=== PATIENT | female | born 1970 | race Caucasian/White ===

== ENCOUNTER → 2023-12-23 15:58 | Outpatient (REF) | payer OTHER, SELFPAY | LOC: RAD 15:58 | PROVIDERS: ATTENDING PHYSICIAN Internal Medicine | DX: E04.2 Nontoxic multinodular goiter (principal) | CPT/HCPCS: 76536 ==

== ENCOUNTER → 2024-01-11 09:22 | Outpatient (REF) | payer OTHER, SELFPAY ==
[2024-01-11 09:58] VITALS: BP 144/74; BP_SYST 88
== END ==
LOC: RADI 09:22
PROVIDERS: ATTENDING PHYSICIAN Internal Medicine
DX: E04.1 Nontoxic single thyroid nodule (principal)
CPT/HCPCS: 88173; 10005

== ENCOUNTER → 2024-02-15 15:31 | Outpatient (REF) | payer OTHER, SELFPAY | LOC: PAVMRI 15:31 | PROVIDERS: ATTENDING PHYSICIAN Pain Medicine Interventional Pain Medicine; FAMILY PHYSICIAN Internal Medicine | DX: M54.16 Radiculopathy, lumbar region (principal) | CPT/HCPCS: 72148 ==

== ENCOUNTER 2024-03-30 06:36 | Outpatient (RCR) | payer OTHER, SELFPAY | END 2024-03-30 23:59 | disposition home or self-care (01) | LOC: RPT 06:36 | PROVIDERS: ATTENDING PHYSICIAN Pain Medicine Interventional Pain Medicine; FAMILY PHYSICIAN Internal Medicine | DX: M54.16 Radiculopathy, lumbar region (principal); Z73.6 Limitation of activities due to disability | CPT/HCPCS: 97010; 97110; 97112; 97140; 97162 ==

== ENCOUNTER 2024-04-04 09:04 | Outpatient (RCR) | payer OTHER, SELFPAY | END 2024-04-04 12:40 | disposition home or self-care (01) | LOC: RPT 09:04 | PROVIDERS: ATTENDING PHYSICIAN Pain Medicine Interventional Pain Medicine; FAMILY PHYSICIAN Internal Medicine | DX: M54.16 Radiculopathy, lumbar region (principal); Z73.6 Limitation of activities due to disability | CPT/HCPCS: 97010; 97110; 97112; 97140 ==

== ENCOUNTER → 2024-05-31 14:40 | Outpatient (REF) | payer OTHER, SELFPAY | LOC: PAVMRI 14:40 | PROVIDERS: ATTENDING PHYSICIAN Pain Medicine Interventional Pain Medicine; FAMILY PHYSICIAN Internal Medicine | DX: M54.14 Radiculopathy, thoracic region (principal); M54.12 Radiculopathy, cervical region | CPT/HCPCS: 72141; 72146 ==

== ENCOUNTER → 2024-06-07 08:46 | Outpatient (REF) | payer OTHER, SELFPAY | LOC: HWRAD 08:46 | PROVIDERS: ATTENDING PHYSICIAN Advanced Practice Midwife; FAMILY PHYSICIAN Internal Medicine | DX: R10.2 Pelvic and perineal pain (principal) | CPT/HCPCS: 76830; 76856 ==

== ENCOUNTER → 2024-07-18 19:43 | Outpatient (REF) | payer OTHER, SELFPAY | LOC: MRI 19:43 | PROVIDERS: ATTENDING PHYSICIAN Advanced Practice Midwife; FAMILY PHYSICIAN Internal Medicine | DX: N80.03 Adenomyosis of the uterus (principal) | CPT/HCPCS: 72197; A9575 ==

== ENCOUNTER → 2024-08-23 08:08 | Outpatient (REF) | payer OTHER, SELFPAY | LOC: WDC 08:08 | PROVIDERS: ATTENDING PHYSICIAN Nurse Practitioner Family; FAMILY PHYSICIAN Internal Medicine | DX: Z12.31 Encounter for screening mammogram for malignant neoplasm of breast (principal) | CPT/HCPCS: 77063; 77067 ==

== ENCOUNTER → 2024-08-29 07:14 | Outpatient (REF) | payer OTHER, SELFPAY | LOC: MRI 3T 07:14 | PROVIDERS: ATTENDING PHYSICIAN Orthopaedic Surgery; FAMILY PHYSICIAN Internal Medicine | DX: M25.552 Pain in left hip (principal) | CPT/HCPCS: 73721 ==

== ENCOUNTER → 2025-02-15 17:16 | Outpatient (REF) | payer OTHER, SELFPAY | LOC: RAD 17:16 | PROVIDERS: ATTENDING PHYSICIAN Internal Medicine; FAMILY PHYSICIAN Internal Medicine | DX: E04.2 Nontoxic multinodular goiter (principal) | CPT/HCPCS: 76536 ==

== ENCOUNTER 2025-02-27 18:02 | Outpatient (RCR) | payer OTHER, SELFPAY | END 2025-02-27 23:59 | disposition home or self-care (01) | LOC: RPT 18:02 | PROVIDERS: ATTENDING PHYSICIAN Internal Medicine | DX: M54.2 Cervicalgia (principal); Z73.6 Limitation of activities due to disability; M54.9 Dorsalgia, unspecified; M25.552 Pain in left hip; M25.551 Pain in right hip; G89.29 Other chronic pain | CPT/HCPCS: 97010; 97110; 97112; 97140; 97162 ==

== ENCOUNTER 2025-03-18 19:00 | Outpatient (RCR) | payer OTHER, SELFPAY | END 2025-03-18 23:59 | disposition home or self-care (01) | LOC: RPT 19:00 | PROVIDERS: ATTENDING PHYSICIAN Internal Medicine | DX: M54.2 Cervicalgia (principal); G89.29 Other chronic pain; M54.9 Dorsalgia, unspecified; M25.552 Pain in left hip; M25.551 Pain in right hip; Z73.6 Limitation of activities due to disability | CPT/HCPCS: 97110; 97112; 97140 ==

== ENCOUNTER 2025-04-17 18:58 | Outpatient (RCR) | payer OTHER, SELFPAY | END 2025-04-17 23:59 | disposition home or self-care (01) | LOC: RPT 18:58 | PROVIDERS: ATTENDING PHYSICIAN Internal Medicine | DX: M54.2 Cervicalgia (principal); G89.29 Other chronic pain; M54.9 Dorsalgia, unspecified; M25.552 Pain in left hip; M25.551 Pain in right hip; Z73.6 Limitation of activities due to disability | CPT/HCPCS: 97110; 97112 ==

== ENCOUNTER 2025-04-23 11:39 | Outpatient (RCR) | payer OTHER, SELFPAY | END 2025-04-23 23:59 | disposition home or self-care (01) | LOC: RPT 11:39 | PROVIDERS: ATTENDING PHYSICIAN Advanced Practice Midwife; FAMILY PHYSICIAN Internal Medicine | DX: N81.89 Other female genital prolapse (principal); N39.3 Stress incontinence (female) (male); N39.41 Urge incontinence; M62.81 Muscle weakness (generalized); Z73.6 Limitation of activities due to disability | CPT/HCPCS: 97140; 97163; 97530 ==

== ENCOUNTER → 2025-05-17 07:17 | Outpatient (REF) | payer OTHER, SELFPAY | LOC: HWRAD 07:17 | PROVIDERS: ATTENDING PHYSICIAN Internal Medicine Cardiovascular Disease; FAMILY PHYSICIAN Internal Medicine | DX: Q24.8 Other specified congenital malformations of heart (principal) | CPT/HCPCS: 71250 ==

== ENCOUNTER → 2025-05-28 07:23 | Outpatient (REF) | payer OTHER, SELFPAY | LOC: RCS 07:23 | PROVIDERS: ATTENDING PHYSICIAN Internal Medicine Cardiovascular Disease; FAMILY PHYSICIAN Internal Medicine | DX: Q24.8 Other specified congenital malformations of heart (principal) | CPT/HCPCS: 93306 ==

== ENCOUNTER 2025-05-28 11:57 | Outpatient (RCR) | payer OTHER, SELFPAY | END 2025-05-28 23:59 | disposition home or self-care (01) | LOC: RPT 11:57 | PROVIDERS: ATTENDING PHYSICIAN Advanced Practice Midwife; FAMILY PHYSICIAN Internal Medicine | DX: N81.89 Other female genital prolapse (principal); N39.3 Stress incontinence (female) (male); N39.41 Urge incontinence; M62.81 Muscle weakness (generalized); Z73.6 Limitation of activities due to disability | CPT/HCPCS: 97110; 97112; 97140; 97530 ==

== ENCOUNTER → 2025-06-07 06:41 | Outpatient (REF) | payer OTHER, SELFPAY | LOC: RAD 06:41 | PROVIDERS: ATTENDING PHYSICIAN Internal Medicine | DX: K76.89 Other specified diseases of liver (principal) | CPT/HCPCS: 76700 ==

== ENCOUNTER → 2025-06-13 09:47 | Outpatient (REF) | payer OTHER, SELFPAY | LOC: RCS 09:47 | PROVIDERS: ATTENDING PHYSICIAN Internal Medicine Cardiovascular Disease; FAMILY PHYSICIAN Internal Medicine | DX: R06.09 Other forms of dyspnea (principal); I25.10 Atherosclerotic heart disease of native coronary artery without angina pectoris | CPT/HCPCS: 93017; 93350 ==

== ENCOUNTER 2025-06-20 10:57 | Outpatient (RCR) | payer OTHER, SELFPAY | END 2025-06-20 23:59 | disposition home or self-care (01) | LOC: RPT 10:57 | PROVIDERS: ATTENDING PHYSICIAN Advanced Practice Midwife; FAMILY PHYSICIAN Internal Medicine | DX: N81.89 Other female genital prolapse (principal); N39.3 Stress incontinence (female) (male); N39.41 Urge incontinence; M62.81 Muscle weakness (generalized); Z73.6 Limitation of activities due to disability | CPT/HCPCS: 97110; 97140; 97530 ==

== ENCOUNTER 2025-07-09 13:03 | Outpatient (RCR) | payer OTHER, SELFPAY | END 2025-07-11 14:29 | disposition home or self-care (01) | LOC: RPT 13:03 | PROVIDERS: ATTENDING PHYSICIAN Advanced Practice Midwife; FAMILY PHYSICIAN Internal Medicine | DX: N81.89 Other female genital prolapse (principal); N39.3 Stress incontinence (female) (male); N39.41 Urge incontinence; Z73.6 Limitation of activities due to disability; M62.81 Muscle weakness (generalized) | CPT/HCPCS: 97014; 97110; 97112; 97530 ==

== ENCOUNTER 2025-07-17 04:59 | Inpatient (IN) | payer OTHER, SELFPAY ==
[2025-06-21 09:36] VITALS: BMI 27.8
[2025-06-21 10:09] LABS: Hematocrit 37.7 % (37.0-47.0); Hemoglobin 12.3 g/dL (12.0-16.0); Mean Corp Hgb Conc. 32.6 g/dL (33.0-37.0); Mean Corpuscular Volume 87.7 fL (81.0-99.0); Nucleated Red Blood Cells % 0 %; Platelet Count 253 10^3/uL (130-400); Red Cell Dist. Width 13.9 % (11.5-14.5)
[2025-06-21 10:09] LABS: Urine Character Clear (Clear)
[2025-06-21 10:17] LABS: INR 0.92; PT 12.6 Sec (11.4-14.6)
[2025-06-21 10:28] LABS: Urine Squamous Cell >30 /LPF (Few)
[2025-06-21 10:29] LABS: Urine Red Blood Cell 0-2 /HPF (0-2)
[2025-06-21 10:39] LABS: ALT (SGPT) 10 U/L (0-35); AST (SGOT) 26 U/L (14-36); Albumin 4.8 g/dl (3.5-5.0); Alkaline Phosphatase 61 U/L (38-126); Blood Urea Nitrogen 14 mg/dl (7-17); Calcium 9.4 mg/dl (8.4-10.2); Carbon Dioxide 28 mmol/L (22-30); Chloride 103 mmol/L (98-107); Estimated Creatinine Clearance 88 ml/min; Glucose 73 mg/dl (70-99); Potassium 4.1 mmol/L (3.5-5.1); Sodium 137 mmol/L (135-145); Total Protein 7.2 g/dl (6.3-8.2); eGFR > 60.00
--- NOTE | 2025-06-21 10:39 | CM ---
Chart reviewed. Met with the patient in PAT. Reviewed preoperative and postoperative instructions and restrictions, along with showering guidelines. Gave patient 2 soaps. Patient is agreeable to a home visit by CT Transitional RN. Patient is
independent of ADLS, lives alone in a 2 story condo, 2 full flight of stairs to enter, 0 DME. Patient with a supportive mother, sister and friends. Patient's mother will stay with the patient for a couple of days after discharge. Plan is for
the patient to return home with CT Transitional RN.
[2025-06-21 11:44] LABS: Glycohemoglobin (HgbA1c) 5.3 % (4.0-5.6)
[2025-07-17] VITALS (9 sets, daily range): BP systolic 111–142; BP diastolic 60–84; BMI 28.3
--- NOTE | 2025-07-17 06:25 | W.CVOR.SURPR ---
CVOR Surgeon Immed Pre Op
-
I have examined this patient prior to performance of the scheduled procedure.
The patient's condition is unchanged from the time of the dictated/written History and
Physical and the patient is able to undergo the scheduled procedure.
RATS R sided pericardial cyst resection
--- NOTE | 2025-07-17 06:30 | PTCARENOTE ---
admitted pt into CVICU room 2260. pt confirmed 2 showers at home. pt clipped and prepped for CVOR. med rec completed. all questions answered. kapok and cotton machine operator to CVOR.
[2025-07-17] MEDS: ANCEF 10 IV ×2 (08:17→10:33)
[2025-07-17 08:22] LABS: Urine Character Slightly Cloudy (Clear)
[2025-07-17 08:48] LABS: Urine Urothelial Cell 0-2 /LPF (FEW)
--- NOTE | 2025-07-17 09:42 | W.PN.CT.SURG ---
CT Surgery Operative Note
-
THORACIC SURGERY OPERATIVE REPORT
Preoperative Diagnosis: Pericardial cyst, right side
Postoperative Diagnosis: Same
Procedure(s) Performed:
1. Robotic assisted thoracic surgery [R ATS]
2. Pericardial cyst resection with preservation of the right phrenic nerve
3. Intercostal nerve block interspaces 4, 5, 6, 7
4. Intercostal cryo nerve ablation, interspaces 4, 5, 6, 7 with 2 minutes of freezing time each
5. Lysis of adhesion, pneumolysis
Date of Surgery: 07/17/25
Comorbidities:
1. Pericardial cyst
2. History of EtOH abuse, sober since 2003
3. OCD
4. Menorrhagia
5. Depression
6. Melanoma of the left upper extremity, status post resection
7. Hepatic cysts
Attending Surgeon: Fritz Yanez MD, MS
Assistants: Latanya Landry PA-C (present and necessary to family assistant, exchanging robotic instruments, retraction, suction, exposure, suture management, and wound closure under my direction), Donna Medrano MD (did portions of the cyst resection and
pneumolysis
Anesthesiology: Uzair Birch MD and Paulino Xie CRNA
Scrub and Circulating RNs: Toney Castano RN, Ann Stark RN
Anesthesia: Dual Lumen GETA
EBL: 10 cc
Products: None
Indication(s) for Procedures: This is a 54-year-old female who was found to have a pericardial cyst in the right side. She has had multiple imaging studies to demonstrate stability of the pericardial cyst. Lately she has been developing shortness
of breath with exertion and some fatigue. Although I told her this is likely not related to her cyst, she felt that she would want this pericardial cyst taken out due to her anxiety.
Findings: This is a 54-year-old female whose had a stable right-sided pericardial cyst. Intraoperatively there is no obvious lesions or concerning for metachronous disease. There was adhesions from her right upper middle lobes to the pericardial
cyst. Her phrenic nerve was visualized running along the pericardium and also in the sac at the lower border. She is unable to be peeled off and I felt it was very incorporated into the pericardial cyst. The pericardial cyst was then
from the [place] pericardium with part of her thymic fat resected as well. At this point I entered into the pericardial cyst and isolated a 2 to 3 mm patch of cyst tissue along the phrenic nerve in order to avoid injuring it. I then peeled off the
posterior aspect of the sac from the [place] pericardium. This was done with the vessel sealer. The sac was then placed into a small anchor bag and extracted from the chest cavity. Intercostal nerve block and cryoablation of the nerves were then
performed as listed above. And adhesions between the right upper middle lobes were also divided with vessel sealer. As inclusion the case, there was no significant bleeding from the resected cavity and all 3 lobes expanded well.
Specimen(s):
Pericardial cyst
Description of Procedure: The patient was taken to the operating room. Induction via general anesthesia with endotracheal intubation was performed and peripheral venous access and arterial monitoring were inserted. Their identity and procedure to be
performed were verified and they were positioned with the right side bumped up on the operating table. The patient was then prepped and draped in a sterile fashion. A preoperative time-out was performed with all members of the team present. A
Veress needle was used to insufflate the chest after isolating the lung. An 8 mm port was placed in the midaxillary line at approximately the 3rd intercostal space and confirmed to be intrathoracic without significant pulmonary injury. The chest was
surveyed for any evidence of metastatic disease. Patient tolerate insufflation without complication. 2 additional 8 mm trocars were placed on with one going through a 12 mm sales operations assistant port. The pericardial sac/close was identified and any adhesions
to the lung was taken down using the vessel sealer. I then worked my way around the cyst and isolated it. The phrenic nerve was closely encased and incorporated to the pericardial cyst and so the cyst was marsupialized and a small rim of sac
tissue was left attached to the phrenic nerve. Additional pneumo lysis was then performed. A small anchor bag was then placed to the chest cavity and the pericardial cyst was placed inside the bag and extracted from the chest cavity. The
intercostal nerve blocks then performed with injection of local analgesia followed by cryo nerve ablation at the listed interspaces above. A single chest tube was placed through one of the ports towards the apex. After confirming hemostasis, the
lung was fully inflated and all ports were removed. Incisions were closed in 3 layers including the fascia, dermal, and epidermis. Additional local anesthesia was injected into all incision sites. The skin wound was cleansed and sealed with
Dermabond glue.
All instrument, sponge, and needle counts were confirmed to be correct x 2 at the end of the operation. The patient was transferred to the cardiac intensive care unit extubated in critical but stable condition.
I, Dr. Fritz Yanez, was present, scrubbed for, and performed all critical elements of this procedure.
Fritz Yanez MD, MS
Cardiothoracic Surgeon
[facility]
This operative dictation was created using the PERORA dictation system. Please excuse any grammatical, typographical, or 'sound alike' errors
--- NOTE | 2025-07-17 10:15 | PTCARENOTE ---
received patient from cvor still drowsy but extubated and with simple face mask. pulse ox 99% NSR. HR 80s. No central lines. 1 CT R lateral to water seal. draining minimal red. Lungs diminished. IS to 750-1000. no gtts infusing. pulses palpable no
edema. Punctures from surgery to R sidex3. surgical glue/BRANDIE. will cotninue to monitor. mom updated at bedside.
[2025-07-17 10:23] LABS: Hematocrit 33.7 % (37.0-47.0); Hemoglobin 11.2 g/dL (12.0-16.0); Mean Corp Hgb Conc. 33.2 g/dL (33.0-37.0); Mean Corpuscular Volume 87.5 fL (81.0-99.0); Platelet Count 241 10^3/uL (130-400); Red Cell Dist. Width 13.4 % (11.5-14.5)
[2025-07-17 10:34] LABS: INR 0.95; PT 13.2 Sec (11.4-14.6)
[2025-07-17] MEDS: SENOKOT PO (10:34)
[2025-07-17] MEDS: NEURONTIN PO (10:34)
[2025-07-17] MEDS: MIRALAX PO (10:34)
[2025-07-17 10:38] LABS: Blood Urea Nitrogen 11 mg/dl (7-17); Calcium 8.3 mg/dl (8.4-10.2); Carbon Dioxide 28 mmol/L (22-30); Chloride 106 mmol/L (98-107); Estimated Creatinine Clearance 114 ml/min; Glucose 173 mg/dl (70-99); Potassium 3.8 mmol/L (3.5-5.1); Sodium 139 mmol/L (135-145); eGFR > 60.00
[2025-07-17] MEDS: TORADOL 15 MG IV ×2 (11:15→18:22)
--- NOTE | 2025-07-17 12:43 | W.PN.CARDCBS ---
Addendum entered and electronically signed by Raheem Jenninsg MD 07/17/25 14:20:
I saw and examined the patient.
The [employer]VE[employer] or PA's note was reviewed and I agree with the note.
Comment: General: Well developed, well nourished in NAD.
Neck: Supple, no JVD, HJR, carotids +2 B/L, no bruits bilaterally.
Heart: Non displaced PMI, RRR, no murmurs, No S3, S4, no rubs.
Lungs: Scattered rhonchi
Extremities: No clubbing, cyanosis or edema bilaterally.
Neuro: Grossly nonfocal, awake, alert and oriented x3.
Le the seen immediately postop status post pericardial cyst resection. Remains in sinus rhythm. Stable cardiology status. Discussed with patient and mother at bedside. Discussed with CT surgery PA.
Original Note:
Today's Communication / Plan
-
continue post op care
in SR
Impression / Plan
-
Primary Liability Analyst: Dr. Saeed
Assessment:
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
History of ETOH abuse
OCD
Depression
Hepatic cysts
Echo 05/28/2025: EF 62%, no regional wall motion abnormalities, no significant valvular disease
Plan:
-s/p RATS with pericardial cyst resection 07/17/25
-wean supp O2 as able
-BP/HR stable
-in SR with incomplete RBBB on review of post op EKG.
-hgb 11.2
-continue post op care
-d/w nursing
Progress Note - Liability Analyst
Subjective
Date of Service: July 17, 2025
no complaints
Objective
Labs:
07/17/25 10:13
07/17/25 10:13
Labs
Hgb 11.2 g/dL (12.0-16.0) L 07/17/25 10:13
Hct 33.7 % (37.0-47.0) L 07/17/25 10:13
Plt Count 241 10^3/uL (130-400) 07/17/25 10:13
PT 13.2 Sec (11.4-14.6) 07/17/25 10:13
INR 0.95 07/17/25 10:13
Sodium 139 mmol/L (135-145) 07/17/25 10:13
Potassium 3.8 mmol/L (3.5-5.1) 07/17/25 10:13
BUN 11 mg/dl (7-17) 07/17/25 10:13
Creatinine 0.6 mg/dL (0.6-1.0) 07/17/25 10:13
Glucose 173 mg/dl (70-99) H 07/17/25 10:13
Vital Signs and I&O:
Vital Signs
Temp Pulse Resp BP Pulse Ox
98 F 78 13 142/84 98
07/17/25 10:33 07/17/25 12:15 07/17/25 12:15 07/17/25 05:07 07/17/25 12:15
Vital Signs
Temp Pulse Resp BP Pulse Ox
98 F 78 13 142/84 98
07/17/25 10:33 07/17/25 12:15 07/17/25 12:15 07/17/25 05:07 07/17/25 12:15
Intake & Output
07/15/25 07/16/25 07/17/25 07/18/25
07:59 07:59 07:59 07:59
Output Total
Balance -
Physical Exam
Physical Exam
GEN: No distress, awake but groggy, oriented x3. on supp O2
HEENT: supple, anicteric, mmm, eomi
LUNGS: CTA B/L, no wheezes/rales
CV: Reg, S1/S2, no murmur
ABD: soft, BS+, NT/ND
EXT: No cyanosis, clubbing, edema
NEURO: Gross non-focal
SKIN: Warm, pink, dry. No rash
--- NOTE | 2025-07-17 13:00 | PTCARENOTE ---
weaned to RA. VSS. pain reported as a 4/10. does not want anything for pain at this time and stressing concerns for narcotic use because she is 'in recovery' continuing to monitor.
[2025-07-17] MEDS: TYLENOL 1000 MG PO ×2 (14:40→21:03)
[2025-07-17] MEDS: FLEXERIL 5 MG PO (15:13)
[2025-07-17] MEDS: NEURONTIN 100 MG PO ×2 (15:13→21:03)
[2025-07-17] MEDS: ANCEF 5 IV (15:14)
--- NOTE | 2025-07-17 18:34 | PTCARENOTE ---
still havnt voided post jones removal 0940. bladder scanned for 220. no urge to urinate at this time. will give patient some more time. setting up for dinner. see MAR for med dosing. will continue to monitor.
[2025-07-17] MEDS: SENOKOT 8.6 MG PO (19:30)
[2025-07-17] MEDS: ULTRAM 25 MG PO (19:30)
--- NOTE | 2025-07-17 19:56 | PTCARENOTE ---
Patient received from RN @ 1900. Patient lying in bed w/ call valdez in reach. AOx3. Patient states pain is 7/10. See MAR for details. SR on monitor. BP 123/77 HR 70. Radial and pedal pulses present. No edema noted. Lungs diminished in bases.
IS 1000. POX 95% RA. Right lateral CT set to water seal draining serosanguineous fluid. No crepitus, tidaling, or air leaks noted. Bowel sounds hypoactive. Surgical sites C/D/I. Right and left PIV patent and intact See worklist for more
details.
[2025-07-17] MEDS: LOPRESSOR 12.5 MG PO (21:03)
--- NOTE | 2025-07-17 21:19 | PTCARENOTE ---
Patient states they have no urge to urinate. Bladder scan for 347mL. CT AASHISH nino.
[2025-07-17] MEDS: LR 250 IV (22:36)
[2025-07-18] VITALS (10 sets, daily range): BP systolic 101–129; BP diastolic 56–75; BMI 29.0
[2025-07-18] MEDS: TORADOL 15 MG IV ×4 (00:11→18:25)
[2025-07-18] MEDS: ANCEF 5 IV ×2 (00:11→08:31)
[2025-07-18] MEDS: DILAUDID 0.25 MG IV ×2 (00:46→08:30)
--- NOTE | 2025-07-18 00:54 | PTCARENOTE ---
Patient reassessed. SR on monitor. VSS. Bladder scan for 415mL. Patient ambulated to bathroom and voided 550mL. See MAR for pain management.
[2025-07-18 04:26] LABS: Hematocrit 34.0 % (37.0-47.0); Hemoglobin 11.0 g/dL (12.0-16.0); Mean Corp Hgb Conc. 32.4 g/dL (33.0-37.0); Mean Corpuscular Volume 88.3 fL (81.0-99.0); Platelet Count 209 10^3/uL (130-400); Red Cell Dist. Width 13.4 % (11.5-14.5)
--- NOTE | 2025-07-18 04:44 | PTCARENOTE ---
Patient reassessed. Sinus bradycardia BP 101/65 HR 57 POX 98% 1L NC. Patient states pain is well controlled.
--- NOTE | 2025-07-18 05:12 | W.PN.CT ---
Today's Communication / Plan
-
-pod #1
-no significant issues overnight
-R pleur CT output 90/140 in 12/24 hrs (dumped 70 when walked to the bathroom last night and no significant output since), on water seal, no air leak
-follow CXR
-encourage IS, OOB
Assessment / Plan
-
- Pericardial cyst, right side- s/p Robotic assisted thoracic surgery [RATS]; Pericardial cyst resection with preservation of the right phrenic nerve; Lysis of adhesion, pneumolysis by Dr Yanez on 07/17/25, pod #1
- Intraoperatively, there is no obvious lesions or concerning for metachronous disease. There were adhesions from her right upper middle lobes to the pericardial cyst.
- OCD
- Menorrhagia
- Iron-deficiency anemia
- Depression
- Melanoma of the left upper extremity, status post resection
- Hepatic cysts
- Back pain, L5-S1 injection
- L knee scope
- Allergic rhinitis
- Former smoker, quit 2005
- History of EtOH abuse, sober since 2003
Discussed patient care with: Nursing and Care Team
Subjective
-
Date of Service: July 18, 2025
Objective Data
-
PT 13.2 Sec (11.4-14.6) 07/17/25 10:13
INR 0.95 07/17/25 10:13
Vital Signs
Vital Signs
Temp Pulse Resp BP Pulse Ox
97.9 F 63 16 111/64 93
07/17/25 23:00 07/17/25 23:00 07/17/25 23:00 07/17/25 22:00 07/17/25 23:00
CT Intake/Output/Weight
07/17/25 07/17/25 07/18/25
06:59 18:59 06:59
Intake Total 480 / 730 250 / 730
Output Total 50 / 690 640 / 690
Balance 430 / 40 -390 / 40
SaO2: 93
Physical Exam
-
General: Awake and AOx3
Cardiovascular: Regular rate & rhythm, No Murmurs and No Rub
Respiratory: Decreased Breath Sounds
Sternum: Stable
Incision: Clean, Dry and Intact
Extremities: No Edema (2+ DPs b/l)
Abdomen: soft, nontender, nondistended, + bowel sounds
Data Reviewed
-
Lab Results: Results Reviewed
Medications: Active Meds Reviewed
Chest X-Ray: Report Reviewed and Image Reviewed
ECG: Report Reviewed and Image Reviewed
[2025-07-18 05:23] LABS: Blood Urea Nitrogen 15 mg/dl (7-17); Calcium 9.0 mg/dl (8.4-10.2); Carbon Dioxide 25 mmol/L (22-30); Chloride 104 mmol/L (98-107); Estimated Creatinine Clearance 114 ml/min; Glucose 100 mg/dl (70-99); Magnesium 2.1 mg/dl (1.6-2.3); Potassium 4.1 mmol/L (3.5-5.1); Sodium 134 mmol/L (135-145); eGFR > 60.00
[2025-07-18] MEDS: TYLENOL 1000 MG PO ×3 (06:16→21:24)
--- NOTE | 2025-07-18 07:34 | W.PN.ANS.POP ---
Anesthesia Post Operative
- Anesthesia Post Op Note
Vital Signs Stable-See Nursing Note: Yes
Airway Patent: Yes
Adequate Pain Control: Yes
Change in Mental Status: No
Current Postoperative Nausea & Vomiting: No
Anesthesia Complications: No
General Anesthetic Recall: No
Unplanned Admission: No
Post Op Hydration Adequate: Yes
--- NOTE | 2025-07-18 08:00 | PTCARENOTE ---
Patient received from previous shifts RN. walking rounds completed. Patient oob in chair at time of assessment. AAOx3. NSR on monitor. HR 50-70s. VSS. +pulses. no edema. IS 1000. 97% RA. diminished at bases. CT set to water seal. for d/c today. +bs.
appetite fair. Surgical sites C/D/I. Pain managed well. will continue to monitor.
[2025-07-18] MEDS: LIDOCAINE 4% PATCH 1 PATCH TOPICAL (08:30)
[2025-07-18] MEDS: MIRALAX 17 GRAMS PO (08:30)
[2025-07-18] MEDS: THERAGRAN 1 TABLET PO (08:31)
[2025-07-18] MEDS: ZOLOFT 200 MG PO (08:31)
[2025-07-18] MEDS: FEOSOL 325 MG PO (08:31)
[2025-07-18] MEDS: NEURONTIN 100 MG PO ×3 (08:31→21:24)
[2025-07-18] MEDS: LOPRESSOR 12.5 MG PO ×2 (08:31→21:24)
[2025-07-18] MEDS: SENOKOT 8.6 MG PO ×2 (08:32→21:24)
[2025-07-18] MEDS: LASIX 20 MG PO (08:32)
[2025-07-18] MEDS: VITAMIN D3 (cholecalciferol) 125 MCG PO (08:32)
--- NOTE | 2025-07-18 11:28 | W.PN.CARDCBS ---
Addendum entered and electronically signed by Johnnie Carreno MD 07/18/25 12:30:
Some incisional discomfort, otherwise no complaints
Meds: Reviewed
129/70, pulse 57, respiratory rate 18, afebrile, head neck exam unremarkable, lungs are clear, cardiac exam regular rate and rhythm without obvious murmurs or rubs, abdomen benign extremities without clubbing cyanosis or edema
Chest x-ray: Elevated right hemidiaphragm, relative cardiomegaly
ECG yesterday: Sinus rhythm, left atrial enlargement, RSR prime, top normal QTc
Hemoglobin 11, white count 11.2, BUN and creatinine 15 and 0.5, magnesium 2.1
Telemetry: Normal sinus rhythm
Impression:
Doing well postop day 1 status post pericardial cyst resection
Plan:
Continue supportive care
Original Note:
Today's Communication / Plan
-
Continue pain management per primary service
In sinus rhythm
Blood pressure stable
Plan for DC in a.m.
Impression / Plan
-
Primary Steel Construction Worker: Dr. Saeed
Assessment:
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
History of ETOH abuse
OCD
Depression
Hepatic cysts
Echo 05/28/2025: EF 62%, no regional wall motion abnormalities, no significant valvular disease
Plan:
-s/p RATS with pericardial cyst resection 07/17/25
-remains with post op pain, however reports improving s/p CT removal this AM. continue pain mgmt per primary service
-BPs stable
-in SR on review of tele overnight
-hgb stable at 11
-continue post op care
-for DC in AM
-d/w nursing
Progress Note - Steel Construction Worker
Subjective
Date of Service: July 18, 2025
Reports postoperative pain. Reports breathing improved status post chest tube removal.
Objective
Labs:
07/18/25 04:12
07/18/25 04:12
Labs
Hgb 11.0 g/dL (12.0-16.0) L 07/18/25 04:12
Hct 34.0 % (37.0-47.0) L 07/18/25 04:12
Plt Count 209 10^3/uL (130-400) 07/18/25 04:12
PT 13.2 Sec (11.4-14.6) 07/17/25 10:13
INR 0.95 07/17/25 10:13
Sodium 134 mmol/L (135-145) L 07/18/25 04:12
Potassium 4.1 mmol/L (3.5-5.1) 07/18/25 04:12
BUN 15 mg/dl (7-17) 07/18/25 04:12
Creatinine 0.6 mg/dL (0.6-1.0) 07/18/25 04:12
Glucose 100 mg/dl (70-99) H 07/18/25 04:12
Vital Signs and I&O:
Vital Signs
Temp Pulse Resp BP Pulse Ox
98 F 57 18 129/70 97
07/18/25 11:00 07/18/25 11:00 07/18/25 11:00 07/18/25 08:33 07/18/25 11:00
Vital Signs
Temp Pulse Resp BP Pulse Ox
98 F 57 18 129/70 97
07/18/25 11:00 07/18/25 11:00 07/18/25 11:00 07/18/25 08:33 07/18/25 11:00
Intake & Output
07/16/25 07/17/25 07/18/25 07/19/25
07:59 07:59 07:59 07:59
Intake Total 730 / 730
Output Total 690 / 690
Balance 40 / 40
Physical Exam
Physical Exam
GEN: No distress, awake, alert, oriented x3
HEENT: supple, anicteric, mmm, EOMI
LUNGS: CTA bilaterally, no wheezes/rales
CV: Reg, S1/S2, no murmur
ABD: soft, BS+, NT/ND
EXT: No cyanosis, clubbing, edema
NEURO: Gross non-focal
SKIN: Warm, pink, dry. No rash
--- NOTE | 2025-07-18 12:00 | PTCARENOTE ---
d/c chest tube with francheska at bedside. no issues. will continue to monitor.
[2025-07-18] MEDS: FLEXERIL 5 MG PO (16:25)
--- NOTE | 2025-07-18 20:00 | PTCARENOTE ---
Assumed care of patient at 1900. Patient found oob in chair at time of assessment. Patient is AOx4, follows commands appropriately, moves all extremities, etc. Lung sounds are clear and equal bilaterally, saO2 99% on RA. Heart sounds are audible,
patient is SR on the monitor, normal palpable and no observable edema. Patient has active BS in all four quadrants and is voiding in the bathroom. Patient has R lateral chest tube wound with 4x4 dressing that is CDI. There are small incisions around
CT wounds that are approx with surg adhesive BRANDIE. Patient has 2xPIV one in each hand available for intermittent infusion. VSS. Call valdez within reach.
--- NOTE | 2025-07-19 | PTCARENOTE ---
Patient reassessed. VSS. REmains SR/SB on the monitor. Call valdez within reach.
[2025-07-19 04:49] VITALS: BP 145/81
--- NOTE | 2025-07-19 05:00 | PTCARENOTE ---
Patient reassessed. VSS. No c/o pain. Call valdez within reach.
[2025-07-19 06:00] VITALS: BMI 29.2
--- NOTE | 2025-07-19 07:02 | W.PN.CT ---
Today's Communication / Plan
-
-pod #2
-no significant issues overnight
-follow CXR- stable this am
-encourage IS, OOB
-likely d/c today
Assessment / Plan
-
- Pericardial cyst, right side- s/p Robotic assisted thoracic surgery [RATS]; Pericardial cyst resection with preservation of the right phrenic nerve; Lysis of adhesion, pneumolysis by Dr Yanez on 07/17/25, pod #2
- Intraoperatively, there is no obvious lesions or concerning for metachronous disease. There were adhesions from her right upper middle lobes to the pericardial cyst.
- OCD
- Menorrhagia
- Iron-deficiency anemia
- Depression
- Melanoma of the left upper extremity, status post resection
- Hepatic cysts
- Back pain, L5-S1 injection
- L knee scope
- Allergic rhinitis
- Former smoker, quit 2005
- History of EtOH abuse, sober since 2003
Discussed patient care with: Nursing and Care Team
Subjective
-
Date of Service: July 19, 2025
Objective Data
-
Lab Results
07/18/25 04:12
07/18/25 04:12
PT 13.2 Sec (11.4-14.6) 07/17/25 10:13
INR 0.95 07/17/25 10:13
Vital Signs
Vital Signs
Temp Pulse Resp BP Pulse Ox
98.5 F 64 16 145/81 98
07/19/25 04:50 07/19/25 04:49 07/19/25 04:50 07/19/25 04:49 07/19/25 04:50
CT Intake/Output/Weight
07/18/25 07/19/25 07/19/25
18:59 06:59 18:59
Intake Total 240 / 240
Output Total 900 / 900
Balance -660 / -660
SaO2: 98
Physical Exam
-
General: Awake and AOx3
Cardiovascular: Regular rate & rhythm, No Murmurs and No Rub
Respiratory: Decreased Breath Sounds
Sternum: Stable
Incision: Clean, Dry and Intact
Extremities: No Edema (2+ DPs b/l)
Data Reviewed
-
Lab Results: Results Reviewed
Medications: Active Meds Reviewed
Chest X-Ray: Report Reviewed and Image Reviewed
ECG: Report Reviewed and Image Reviewed
[2025-07-19] MEDS: TYLENOL 1000 MG PO (07:32)
[2025-07-19] MEDS: FLEXERIL 5 MG PO (07:32)
[2025-07-19 07:36] VITALS: BP 145/81
--- NOTE | 2025-07-19 07:57 | PTCARENOTE ---
Patient received from assistant shift supervisor resting in bed, AAO x 3, c/o moderate procedural discomfort, medicated for such (see MAR). NSR via cm, Sao2 @ 100% on RA. All procedural sites stable. Patient assisted oob to chair, standing scale weight obtained.
Patient updated to plan of care for the day, in agreement. See work list for full assessment and interventions performed.
[2025-07-19] MEDS: VITAMIN D3 (cholecalciferol) 125 MCG PO (08:31)
[2025-07-19] MEDS: SENOKOT 8.6 MG PO (08:31)
[2025-07-19] MEDS: LOPRESSOR 12.5 MG PO (08:31)
[2025-07-19] MEDS: ZOLOFT 200 MG PO (08:31)
[2025-07-19] MEDS: NEURONTIN 100 MG PO (08:31)
[2025-07-19] MEDS: MIRALAX 17 GRAMS PO (08:32)
[2025-07-19] MEDS: FEOSOL 325 MG PO (08:32)
[2025-07-19] MEDS: THERAGRAN 1 TABLET PO (08:32)
[2025-07-19] MEDS: LIDOCAINE 4% PATCH 1 PATCH TOPICAL (08:32)
--- NOTE | 2025-07-19 08:56 | W.DCSUMMARY ---
Discharge Summary
Discharge Data
Date of Admission: 07/17/25
Date of Discharge: 07/19/25
-
Pending Results: Yes
Hospital Course
Primary care physician:
Dr. Michelle
Outpatient fitness technician:
Dr. Saeed
Inpatient consultants:
[facility]
Procedures:
1. Pericardial cyst resection with preservation of the right phrenic nerve
Primary Diagnosis:
1. Pericardial cyst, right side
Secondary Diagnoses:
1. post op fluid overload
2. History of EtOH abuse, sober since 2003
3. OCD
4. Menorrhagia
5. Depression
6. Melanoma of the left upper extremity, status post resection
7. Hepatic cysts
HPI: 54-year-old female who was found to have a pericardial cyst in the right side. She has had multiple imaging studies to demonstrate stability of the pericardial cyst. Lately she has been developing shortness of breath with exertion and some
fatigue. Although I told her this is likely not related to her cyst, she felt that she would want this pericardial cyst taken out due to her anxiety. she presented electively on 07/17 for robotic assisted thoracic surgery with Dr. Yanez
Hospital course:
Patient presented electively on 07/17 for pericardial cyst removal with Dr. Yanez. Procedure went well and she was extubated in the OR and patient returned to the CVICU for the remainder of her recovery. Patient's CT was placed on water seal and no
air leak was present. She was advanced to a clear liquid diet and she was started on low dose lopressor to prevent post-operative atrial fibrillation. On 07/18 post operative day #1, patient was diuresed with 20mg of PO lasix and CT was removed. She
remained for an additional day for pain management. On 07/19 postoperative day #2, she remained hemodynamically stable and was discharged home.
Home medication changes:
see below
Discharge Plan
-
Patient Disposition: Home (Routine Discharge)
Discharge Diagnosis/Procedures: pericardial cyst removal
Condition: Good
Diet: Regular
Activity: As tolerated
Driving Restrictions: No driving for 2 weeks
Bathing Restrictions: OK to Shower
Specialty Instructions: Weigh Daily- Call MD for wt gain/loss 3 lbs overnight/5 lbs in 1 week
Referrals:
CT Transitional Care Nurse [Outside]
Referral Note: The Cardiothoracic Transitional Care Nurse will call you to set up a visit in 1-2 days.
Mecca Elizondo PA-C [Specified Professional Personl, Cardiology] - 08/27/25 3:20 pm
Xavier Bryson MD [Family Provider, Internal Medicine]
Fritz Yanez MD [Active, Cardiac Surgery] - 08/05/25 2:15 pm
Prescriptions:
New
acetaminophen 325 mg Tablet
650 mg PO Q4HPRN PRN (Reason: mild pain,headache,temp >101F ) Qty: 0 0RF
gabapentin 100 mg Capsule
300 mg PO TID Qty: 90 0RF
metoprolol tartrate 25 mg Tablet
12.5 mg PO BID 30 Days Qty: 30 0RF
cyclobenzaprine 10 mg Tablet
5 mg PO Q8HPRN PRN (Reason: muscle spasm) Qty: 90 0RF
oxycodone 5 mg tablet
5 mg PO Q8H PRN (Reason: Pain) Qty: 7 0RF
Continued
multivitamin Tablet
1 tab PO DAILY
sertraline [Zoloft] 100 mg Tablet
200 mg PO DAILY
fexofenadine 180 mg Tablet
180 mg PO PRN PRN (Reason: allergies)
fluticasone propionate 50 mcg/actuation Howard,Suspension
1 spray INTRANASAL PRN PRN (Reason: allergies)
ferrous sulfate 27 mg iron Tablet
27 mg PO DAILY
cholecalciferol (vitamin D3) [Vitamin D3] 125 mcg (5,000 unit) Tablet
125 mcg PO DAILY
Discontinued
turmeric root extract 500 mg Capsule
500 mg PO DAILY
Discharge Orders:
Discharge Patient (As Directed); Ordered 07/19/25
Ordered By: Yane Hallman
Care Plan Goals
Care Plan Goals:
Problem: Readiness for enhanced knowledge related to diagnosis and treatment plan
Goal: Understand your diagnosis and treatment plan needs, including medications if applicable.
Instructions: Know your diagnosis, underlying causes and treatment plan options, including medications if applicable. Consult with your health care team to learn about your diagnosis and treatment plan, including medications if applicable.
Discharge Date and Time
Print Language: CROATIAN
[2025-07-19 10:29] VITALS: BP 134/77
--- NOTE | 2025-07-19 10:37 | W.PN.CARDCBS ---
Today's Communication / Plan
-
Discharge home today with outpatient cardiac follow-up
Outpatient surveillance imaging
Impression / Plan
-
Primary Retail Account Specialist: Dr. Saeed
Assessment:
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
History of ETOH abuse
OCD
Depression
Hepatic cysts
Echo 05/28/2025: EF 62%, no regional wall motion abnormalities, no significant valvular disease
Plan:
-s/p RATS with pericardial cyst resection 07/17/25
-Pathology pending
-Chest x-ray today after removal of chest tube with no pneumothorax. Stable cardiac and mediastinal contours
-EKG 07/17/2025: Sinus rhythm with left atrial enlargement and incomplete right bundle branch block.
-Hemodynamically stable ambulating in room.
-BPs stable; Sinus rhythm on telemetry
-Lab work on day of discharge: Hemoglobin 11, WBC 11.2, platelets 209,000. Sodium 134, potassium 4.1, BUN/creatinine 15/0.6. Magnesium 2.0. Hemoglobin A1c 06/21/2025 5.3%.
-Encouraged use of incentive spirometry.
-Plan for discharge home today with outpatient cardiac follow-up
Progress Note - Retail Account Specialist
Subjective
Date of Service: July 19, 2025
Seen and examined ambulating in room. Postoperative soreness and pain which is manageable.
Objective
Labs:
07/18/25 04:12
07/18/25 04:12
Labs
Hgb 11.0 g/dL (12.0-16.0) L 07/18/25 04:12
Hct 34.0 % (37.0-47.0) L 07/18/25 04:12
Plt Count 209 10^3/uL (130-400) 07/18/25 04:12
PT 13.2 Sec (11.4-14.6) 07/17/25 10:13
INR 0.95 07/17/25 10:13
Sodium 134 mmol/L (135-145) L 07/18/25 04:12
Potassium 4.1 mmol/L (3.5-5.1) 07/18/25 04:12
BUN 15 mg/dl (7-17) 07/18/25 04:12
Creatinine 0.6 mg/dL (0.6-1.0) 07/18/25 04:12
Glucose 100 mg/dl (70-99) H 07/18/25 04:12
Vital Signs and I&O:
Vital Signs
Temp Pulse Resp BP Pulse Ox
98 F 69 16 134/77 97
07/19/25 10:30 07/19/25 10:29 07/19/25 10:30 07/19/25 10:29 07/19/25 10:30
Vital Signs
Temp Pulse Resp BP Pulse Ox
98 F 69 16 134/77 97
07/19/25 10:30 07/19/25 10:29 07/19/25 10:30 07/19/25 10:29 07/19/25 10:30
Intake & Output
07/17/25 07/18/25 07/19/25 07/20/25
06:59 06:59 06:59 06:59
Intake Total 730 / 730 240 / 240 480 / 480
Output Total 690 / 690 900 / 2100 1500 / 1500
Balance 40 / 40 -660 / -1860 -1020 / -1020
Physical Exam
Physical Exam
GEN: No distress, awake, alert, oriented x3
HEENT: mmm
LUNGS: CTA bilaterally, no wheezes/rales
CV: Reg, S1/S2, no murmur
ABD: soft, BS+, NT/ND
EXT: No cyanosis, clubbing, edema
NEURO: Gross non-focal
--- NOTE | 2025-07-19 11:08 | PTCARENOTE ---
PIV x 2 removed. Patient dressed independently, states she wishes to shower at home. Discharge instructions thoroughly reviewed w/patient and mother, all questions answered. Patient and all belongings transported to waiting vehicle for d/c home.
== END 2025-07-19 11:30 | disposition home or self-care (01) | DRG 272 ==
LOC: CVICU 04:59
PROVIDERS: Clinical Nurse Specialist Acute Care; Physician Assistant Medical; ADMITTING PHYSICIAN Thoracic Surgery (Cardiothoracic Vascular Surgery); CONSULT PHYSICIAN Internal Medicine Cardiovascular Disease; FAMILY PHYSICIAN Internal Medicine; REFERRING PHYSICIAN Internal Medicine Cardiovascular Disease
PROC: 0BNC4ZZ Release Right Upper Lung Lobe, Percutaneous Endoscopic Approach (ICD-10-PCS; 2025-07-17)
PROC: 02BN4ZZ Excision of Pericardium, Percutaneous Endoscopic Approach (ICD-10-PCS; 2025-07-17)
PROC: 8E0W4CZ Robotic Assisted Procedure of Trunk Region, Percutaneous Endoscopic Approach (ICD-10-PCS; 2025-07-17)
DX: I31.8 Other specified diseases of pericardium (principal); I31.0 Chronic adhesive pericarditis; K76.89 Other specified diseases of liver; F32.A Depression, unspecified; F42.9 Obsessive-compulsive disorder, unspecified; J98.4 Other disorders of lung; F41.9 Anxiety disorder, unspecified; E87.70 Fluid overload, unspecified; D50.9 Iron deficiency anemia, unspecified; J30.9 Allergic rhinitis, unspecified; N92.0 Excessive and frequent menstruation with regular cycle; Z56.0 Unemployment, unspecified; Z79.899 Other long term (current) drug therapy; Z85.820 Personal history of malignant melanoma of skin; Z87.891 Personal history of nicotine dependence
CPT/HCPCS: 32505; 36415; 64999; 71045; 80048; 80053; 81003; 81015; 82248; 83036; 83735; 85025; 85027; 85610; 86850; 86900; 86901; 86920; 87070; 87086; 88305; 93005; C2618

== ENCOUNTER → 2025-09-16 13:07 | Outpatient (REF) | payer OTHER, SELFPAY | LOC: WDC 13:07 | PROVIDERS: ATTENDING PHYSICIAN Advanced Practice Midwife; FAMILY PHYSICIAN Internal Medicine | DX: Z12.31 Encounter for screening mammogram for malignant neoplasm of breast (principal) | CPT/HCPCS: 77063; 77067 ==

== ENCOUNTER 2025-09-25 06:09 | Outpatient (RCR) | payer OTHER, SELFPAY | END 2025-09-25 23:59 | disposition home or self-care (01) | LOC: RPT 06:09 | PROVIDERS: ATTENDING PHYSICIAN Advanced Practice Midwife; FAMILY PHYSICIAN Internal Medicine | DX: N39.41 Urge incontinence (principal); M25.551 Pain in right hip; M25.552 Pain in left hip; M62.81 Muscle weakness (generalized); Z73.6 Limitation of activities due to disability | CPT/HCPCS: 97112; 97140; 97163; 97530 ==

== ENCOUNTER → 2025-10-15 08:54 | Outpatient (REF) | payer OTHER, SELFPAY | LOC: RAD 08:54 | PROVIDERS: ATTENDING PHYSICIAN Thoracic Surgery (Cardiothoracic Vascular Surgery); FAMILY PHYSICIAN Internal Medicine | DX: Q24.8 Other specified congenital malformations of heart (principal) | CPT/HCPCS: 71275; Q9967 ==

== ENCOUNTER 2025-10-22 13:22 | Outpatient (RCR) | payer OTHER, SELFPAY | END 2025-10-22 23:59 | disposition home or self-care (01) | LOC: RPT 13:22 | PROVIDERS: ATTENDING PHYSICIAN Advanced Practice Midwife; FAMILY PHYSICIAN Internal Medicine | DX: N39.41 Urge incontinence (principal); M25.551 Pain in right hip; M25.552 Pain in left hip; M62.81 Muscle weakness (generalized); Z73.6 Limitation of activities due to disability | CPT/HCPCS: 97110; 97112; 97140 ==